=== PATIENT | female | born 1965 | race Caucasian/White ===

== ENCOUNTER → 2021-09-10 01:05 | Outpatient (CLI) | payer OTHER, SELFPAY ==
[2021-09-10 21:03] LABS: SARS-CoV-2 RNA PCR Negative
== END ==
PROVIDERS: PCP Family Medicine; Visit Provider Physician Assistant Medical
DX: R68.89 Other general symptoms and signs (principal); Z20.822 Contact with and (suspected) exposure to COVID-19
CPT/HCPCS: C9803; U0003; U0005

== ENCOUNTER 2021-09-13 11:59 | Outpatient (CLI) | payer OTHER, SELFPAY ==
--- NOTE | ~2021-09-13 | XR_ITS ---
EXAMINATION: XR chest 2V DATE: 09/13/2021 12:17 INDICATION: Cough, unspecified. TECHNIQUE: Frontal and lateral views of the chest were obtained. COMPARISON: None. FINDINGS: There is mild atelectasis in left midlung zone. No pleural effusion or pneumothorax. The he art size is normal. IMPRESSION: 1. Mild atelectasis in left mid lung zone. Reviewed, dictated and finalized at location B. 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
== END 2021-09-13 12:00 | disposition home or self-care (01) ==
PROVIDERS: PCP Family Medicine; Visit Provider Nurse Practitioner Family
DX: R05.9 Cough, unspecified (principal); R91.8 Other nonspecific abnormal finding of lung field
CPT/HCPCS: 71046

== ENCOUNTER 2021-09-18 13:20 | Outpatient (CLI) | payer OTHER, SELFPAY ==
--- NOTE | ~2021-09-18 | XR_ITS ---
EXAMINATION: XR lumbar spine 6V w bending DATE: 09/18/2021 13:57 INDICATION: Spinal stenosis. TECHNIQUE: 7 views of lumbar spine including standing flexion and extension views were obtained. COMPARISON: Lumbar spine radiographs 12/11/2018 FINDINGS: There is 3 mm anterolisthesis of L4 on L5. There is 14 degrees dextroscoliosis of lumbar sp ine. There is no abnormal motion with flexion or extension. Vertebral body heights are normal. There is mildly decreased disc height at L3-L4 and L4-L5. There is multilevel facet joint osteoarthritis, s evere on the right from L3-L4 through L5-S1 and on the left at L4-L5. IMPRESSION: 1. Mild lumbar spondylosis. 2. Lumbar dextroscoliosis. Reviewed, dictated and finalized at location A. OR CREDIT OFFICER
--- NOTE | ~2021-09-18 | XR_ITS ---
EXAMINATION: XR cervical spine min 6V DATE: 09/18/2021 13:57 INDICATION: Spinal stenosis, cervical region. TECHNIQUE: 5 views of cervical spine including flexion and extension views were obtained. COMPARISON: None. FINDINGS: There is 3 degrees levocurvature of cervicothoracic spine. Vertebral body heights are wilmer l. There is hypomotility of the lower cervical spine with flexion and extension. There is moderately decreased disc height at C5-C6 and severely decreased disc height at C6-C7. There is severe bilateral uncovertebral joint osteoarthritis at C5-C6 and C6-C7. The facet joints are unremarkable. There is m ild bilateral neural foraminal stenosis at C5-C6 and C6-C7. There is mild central canal stenosis at C 5-C6 and C6-C7. No prevertebral soft tissue swelling. IMPRESSION: 1. Severe cervical spondylosis. Reviewed, dictated and finalized at location A. EL BUNG REMOVER AND DUMPER
== END 2021-09-18 13:21 | disposition home or self-care (01) ==
LOC: ANHIMG 13:23
PROVIDERS: PCP Family Medicine; Visit Provider Family Medicine
DX: M48.02 Spinal stenosis, cervical region (principal); M47.816 Spondylosis without myelopathy or radiculopathy, lumbar region; M41.86 Other forms of scoliosis, lumbar region; M47.812 Spondylosis without myelopathy or radiculopathy, cervical region
CPT/HCPCS: 72052; 72114

== ENCOUNTER 2021-10-30 00:26 | Day surgery (SDC) | payer OTHER, SELFPAY ==
[2021-10-17 14:10] VITALS: BMI 31.2
[2021-10-30 11:15] VITALS: BP 131/69; PULSE 79; RESP 18; TEMP 36.7; O2SAT 98
[2021-10-30] MEDS: LACTATED RINGERS 1,000 ML 150 ML IV CONT (11:22)
--- NOTE | 2021-10-30 11:30 | PM.HPGS ---
History of Present Illness History of Present Illness Consent: Risks, benefits, and alternatives have been discussed and questions answered. Patient agrees to proceed with procedure. Chief complaint: neoplasm screening Narrative: Dione Love is a 56 year old female referred for colon cancer screening. Review of Systems Review of Systems: All systems reviewed & are unremarkable except as noted in HPI and below PMFSH Past Medical History Medical History Bilateral hand numbness BMI 28.0-28.9,adult BMI 30.0-30.9,adult BMI 31.0-31.9,adult BMI 32.0-32.9,adult Cervical spinal stenosis Cervical spondylosis with radiculopathy Elevated hemoglobin Lumbar spondylosis Family History Family History Father Acute myocardial infarction Diabetes mellitus Mother Diabetes mellitus AAA (abdominal aortic aneurysm) Other Alcohol abuse Cancer Heart disease Hypertension Social History Social History Smoking packs per day: 1 Smoking cigarettes per day: 20.0 Years smoked: 35 Smoking pack-years: 35.00 Tobacco type: cigarettes Second hand tobacco smoke exposure: No Alcohol intake: never Substance use: current Substance use type: marijuana Other substance usage details: smokes weed Living arrangements: with family Additional living arrangements comments: and kids 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 Gender identity (if verbalized by the patient): Female Sexual Orientation (if Verbalized by the Patient): Straight or Heterosexual Spiritual care concerns: No Agree to blood products: Yes Meds Home Medications and Allergies Home Medications Medication Instructions Recorded Confirmed Type albuterol sulfate 90 mcg/actuation 2 inh INHALATION Q6H PRN #8.5 g 09/16/21 10/21/21 Rx aerosol inhaler silver sulfadiazine 1 % topical 1 applic TOPICAL DAILY #20 g 10/15/21 10/21/21 Rx cream mupirocin 2 % topical ointment 1 applic TOPICAL BID #15 g 10/16/21 10/21/21 Rx celecoxib 100 mg capsule 100 mg PO BID #60 cap 10/18/21 10/30/21 Rx pregabalin 150 mg capsule 150 mg PO TID #90 cap 10/21/21 10/30/21 Rx carisoprodol 350 mg tablet 350 mg PO TID PRN #90 tablet 10/24/21 10/30/21 Rx sertraline 100 mg tablet 100 mg PO DAILY #30 tablet 10/24/21 10/30/21 Rx Allergies Allergy/AdvReac Type Severity Reaction Status Date / Time No Known Allergies Allergy Verified 10/30/21 11:14 Vital Signs Vital Signs - 24 hr 10/30/21 11:15 Temperature 36.7 C Pulse Rate 79 Respiratory Rate 18 Blood Pressure 131/69 Pulse Oximetry 98 Exam Const: General: alert Orientation/consciousness: patient oriented x3 Resp: Auscultation: clear to auscultation bilaterally Cardio: Rhythm: regular rhythm GI: GI Palp: Yes Soft to palpation and No Tenderness to palpation present (GI) Neuro: General: patient oriented x3 Assessment and Plan Assessment and plan (1) Screening for colon cancer: Code(s): Z12.11 - Encounter for screening for malignant neoplasm of colon Status: Acute Assessment and Plan: Colonoscopy with possible biopsy or polypectomy or cautery or injection of substances.
--- NOTE | 2021-10-30 12:21 | WPDANESEPPF ---
Anes - Initial Pre Proc Eval Procedure: Operation Date: 10/30/21 12:30 Proposed Procedures p Screening Colonoscopy - Stephen Noel MD Date/Time: 10/30/21 12:21 Surgeon: Stephen Noel MD Pre Op Diagnosis: neoplasm screening Patient Data Age: 56 Gender: F Height: 1.55 m Weight: 78.1 kg Last Vital Signs Temp 98.0 F 10/30/21 11:15 Pulse 79 10/30/21 11:15 Resp 18 10/30/21 11:15 BP 131/69 10/30/21 11:15 Pulse Ox 98 10/30/21 11:15 Allergies Allergy/AdvReac Type Severity Reaction Status Date / Time No Known Allergies Allergy Verified 10/30/21 11:14 Home Medications Medication Instructions Recorded Confirmed Type albuterol sulfate 90 mcg/actuation 2 inh INHALATION Q6H PRN #8.5 g 09/16/21 10/21/21 Rx aerosol inhaler silver sulfadiazine 1 % topical 1 applic TOPICAL DAILY #20 g 10/15/21 10/21/21 Rx cream mupirocin 2 % topical ointment 1 applic TOPICAL BID #15 g 10/16/21 10/21/21 Rx celecoxib 100 mg capsule 100 mg PO BID #60 cap 10/18/21 10/30/21 Rx pregabalin 150 mg capsule 150 mg PO TID #90 cap 10/21/21 10/30/21 Rx carisoprodol 350 mg tablet 350 mg PO TID PRN #90 tablet 10/24/21 10/30/21 Rx sertraline 100 mg tablet 100 mg PO DAILY #30 tablet 10/24/21 10/30/21 Rx Patient hx anesthesia problems: none Family hx anesthesia problems: none Results Review: All pre-operative results and documents have been reviewed as part of the pre-operative evaluation. [facility] Past Medical History Medical History (Updated 10/21/21 @ 11:09 by Kelvin Finch MD) Bilateral hand numbness BMI 28.0-28.9,adult BMI 30.0-30.9,adult BMI 31.0-31.9,adult BMI 32.0-32.9,adult Cervical spinal stenosis Cervical spondylosis with radiculopathy Elevated hemoglobin Lumbar spondylosis Family History Family History Father Acute myocardial infarction Diabetes mellitus Mother Diabetes mellitus AAA (abdominal aortic aneurysm) Other Alcohol abuse Cancer Heart disease Hypertension Social History Social History Smoking packs per day: 1 Smoking cigarettes per day: 20.0 Years smoked: 35 Smoking pack-years: 35.00 Tobacco type: cigarettes Second hand tobacco smoke exposure: No Alcohol intake: never Substance use: current Substance use type: marijuana Other substance usage details: smokes weed Living arrangements: with family Additional living arrangements comments: and kids 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 Gender identity (if verbalized by the patient): Female Sexual Orientation (if Verbalized by the Patient): Straight or Heterosexual Spiritual care concerns: No Agree to blood products: Yes Anes - Eval Final PreProcedure Day of Procedure 10/30/21 12:21 Patient weight: obese Heart: regular rate and rhythm Lungs: clear to auscultation Airway: Mallampati scale class II Neurological: alert and oriented Last oral intake: >/= 8 hours ASA classification: III Emergent: no Anesthetic plan: proceed Anesthesia type and monitoring: general GIVS and standard monitoring Results Review: All pre-operative results and documents have been reviewed as part of the pre-operative evaluation. Informed Consent: The patient's anesthetic plan and its attendant risks and benefits were discussed with the patient/family/POA. Questions were solicited and answers provided to the satisfaction of the patient/family/POA.
[2021-10-30 12:57] VITALS: BP 118/67; PULSE 68; RESP 21; O2SAT 99
[2021-10-30 13:07] VITALS: BP 135/85; PULSE 63; RESP 18; O2SAT 99
[2021-10-30 13:17] VITALS: BP 150/90; PULSE 64; RESP 18; O2SAT 100
== END 2021-10-30 13:34 | disposition home or self-care (01) ==
PROVIDERS: PCP Family Medicine; Visit Provider Internal Medicine Gastroenterology
PROC: 0DJD8ZZ Inspection of Lower Intestinal Tract, Via Natural or Artificial Opening Endoscopic (ICD-10-PCS; CPT 45378; principal; 2021-10-30 12:30)
DX: Z12.11 Encounter for screening for malignant neoplasm of colon (principal); K63.5 Polyp of colon; K57.30 Diverticulosis of large intestine without perforation or abscess without bleeding; F17.210 Nicotine dependence, cigarettes, uncomplicated; F12.90 Cannabis use, unspecified, uncomplicated; Z79.51 Long term (current) use of inhaled steroids; E66.9 Obesity, unspecified; Z68.32 Body mass index [BMI] 32.0-32.9, adult
CPT/HCPCS: 45380; 88305; J2001; J2704; J7120

== ENCOUNTER 2021-11-07 10:27 | Outpatient (CLI) | payer OTHER, SELFPAY ==
--- NOTE | 2021-11-07 11:30 | NEURO_ITS ---
Impression:: # Complains of numbness of upper extremities. # Subtle evolving right Carpal Tunnel Syndrome. # No ulnar neuropathy. # Normal needle/EMG exam. Nerve Conduction Studies Anti Sensory Summary Table Stim Site NR Peak (ms) P-T Amp (?V) Site1 Site2 Delta-P (ms) Dist (cm) Archie (m/s) Left Median Anti Sensory (2-3nd Digit) Wrist 3.6 19.1 Wrist 2-3nd Digit 3.6 14.0 39 Wrist 4.0 19.7 Wrist 2-3nd Digit 3.6 14.0 39 Right Median Anti Sensory (2-3nd Digit) Wrist 3.4 62.1 Wrist 2-3nd Digit 3.4 14.0 41 Wrist 3.7 39.6 Wrist 2-3nd Digit 3.4 14.0 41 Left Radial Anti Sensory (Base 1st Digit) Wrist 2.1 31.1 Wrist Base 1st Digit 2.1 0.0 Right Radial Anti Sensory (Base 1st Digit) Wrist 1.9 23.3 Wrist Base 1st Digit 1.9 0.0 Left Ulnar Anti Sensory (5th Digit) Wrist 2.3 38.0 Wrist 5th Digit 2.3 14.0 61 Right Ulnar Anti Sensory (5th Digit) Wrist 2.3 21.5 Wrist 5th Digit 2.3 14.0 61 Motor Summary Table Stim Site NR Onset (ms) O-P Amp (mV) Site1 Site2 Delta-0 (ms) Dist (cm) Archie (m/s) Left Median Motor (Abd Poll Brev) Wrist 3.1 3.3 Elbow Wrist 4.6 25.0 54 Elbow 7.7 1.2 Right Median Motor (Abd Poll Brev) Wrist 3.6 3.6 Elbow Wrist 4.3 24.0 56 Elbow 7.9 3.7 Left Ulnar Motor (Abd Dig Minimi) Wrist 2.2 9.0 A Elbow Wrist 4.5 27.0 60 A Elbow 6.7 7.7 Right Ulnar Motor (Abd Dig Minimi) Wrist 2.3 9.1 A Elbow Wrist 4.4 27.0 61 A Elbow 6.7 8.0 F Wave Studies NR F-Lat (ms) L-R F-Lat (ms) Left Median (Mrkrs) (Abd Poll Brev) 27.19 0.97 Right Median (Mrkrs) (Abd Poll Brev) 26.21 0.97 Left Ulnar (Mrkrs) (Abd Dig Min) 25.78 0.24 Right Ulnar (Mrkrs) (Abd Dig Min) 25.55 0.24 EMG Side Muscle Nerve Root Ins Act Fibs Amp Dur Recrt Comment Right 1stDorInt Ulnar C8-T1 Nml Nml Nml Nml Nml Right Ext Indicis Radial (Post Int) C7-8 Nml Nml Nml Nml Nml Right Ext Digitorum Radial (Post Int) C7-8 Nml Nml Nml Nml Nml Right BrachioRad Radial C5-6 Nml Nml Nml Nml Nml Right PronatorTeres Median C6-7 Nml Nml Nml Nml Nml Right Abd Poll Brev Median C8-T1 Nml Nml Nml Nml Nml Left 1stDorInt Ulnar C8-T1 Nml Nml Nml Nml Nml Left Ext Indicis Radial (Post Int) C7-8 Nml Nml Nml Nml Nml Left Ext Digitorum Radial (Post Int) C7-8 Nml Nml Nml Nml Nml Left BrachioRad Radial C5-6 Nml Nml Nml Nml Nml Left PronatorTeres Median C6-7 Nml Nml Nml Nml Nml Left Abd Poll Brev Median C8-T1 Nml Nml Nml Nml Nml MTDD
== END 2021-11-07 10:28 | disposition home or self-care (01) ==
LOC: ANHNEURO 10:31
PROVIDERS: PCP Family Medicine; Visit Provider Family Medicine
DX: R20.2 Paresthesia of skin (principal); G56.01 Carpal tunnel syndrome, right upper limb
CPT/HCPCS: 95886; 95911

== ENCOUNTER 2021-12-03 08:30 | Outpatient (RCR) | payer OTHER, SELFPAY ==
--- NOTE | 2021-10-31 09:01 | PTOPEVAL ---
PHYSICAL THERAPY EVALUATION and PLAN OF CARE Thank you for referring Dione Love to [facility].? The patient is scheduled to be seen for therapy? 2x/week for 4 weeks. Please review, sign, date and return this plan of care OLEKSANDR. I agree with and certify that the following plan of care is medically necessary. Referring Physician Date Attending Provider: Kelvin Finch MD Evaluation Outpatient Past Medical History Neurological History Hx Migraine Yes Cardiovascular History Hx Hypercholesterolemia Yes Respiratory History Hx Bronchitis Yes Hx COVID-19 Yes: 08/2019 Hx Other Respiratory Disorders Yes: SOB with exertion Gastrointestinal History Hx Gastrointestinal Disorders No Significant History Genitourinary History Hx Genitourinary Disorders No Significant History Musculoskeletal History Hx Arthritis Yes Hx Degenerative Disk Disease Yes Hx Fibromyalgia Yes Hx Orthopedic Surgery Yes: L shoulder tendon repair; bilat foot/ankle surgeries Hematological History Hx Hematological Disorders No Significant History Endocrine History Hx Endocrine Disorders No Significant History HEENT History Hx Sinus Problems Yes Integumentary History Hx Skin Disorders No Significant History Reproductive History Hx Tubal Ligation Yes Psychosocial History Hx Anxiety Yes Hx Bipolar Disorder Yes Hx Depression Yes Pain History History of Any Previous or Ongoing No Significant History Instance of Pain Anesthesia History Hx Anesthesia Reactions No Significant History Other History Hx Implanted Device Yes: R foot pin Diagnosis stenosis, back pain, neck pain Onset chronic Subjective Information Has been experiencing back and Query Text:As Reported By Patient/ neck pain chronically. She Family has previous imaging that indicates OA, stenosis, spondylosis, and also reports sciatic symptoms on the left LE. States that there is numbness in the left lateral thigh - taking Lyrica and states that it takes the pain away but not the numbness. cervical spine: will be typing and her hands will go tingly. Gets numbess in bilateral hands. Gets swollen fingers. States that she does not normally have pain in the neck
--- NOTE | 2021-11-15 10:03 | PCPTNOTE ---
Patient did not show up for scheduled appointment this date. Called patient and she stated she looked at her schedule wrong.
--- NOTE | 2021-12-03 09:16 | PTOPEVAL ---
PHYSICAL THERAPY DISCHARGE NOTE Thank you for referring Dione Love to [facility].? Please review, sign, date and return this plan of care OLEKSANDR. I agree with and certify that the following plan of care is medically necessary. Referring Physician Date Attending Provider: Kelvin Finch MD Discharge Diagnosis stenosis, back pain, neck pain Onset chronic Subjective Information States that she feels like Query Text:As Reported By Patient/ physical therapy has probably Family helped. Overall her hands are doing well. The left thumb is still very sore and swollen. Also notes that she is experiencing right UE pain over the last day or two - thinks it could be fibromyalgia. States she walked 5 miles yesterday and was sore after but she knew why she was sore. Pain Score Pain Score 0: Self Report Additional Pain Score Comments . Cervical and Lumbar ROM Cervical ROM Cervical ROM Comments generally WFL cervical ROM, no change in symptoms with ROM; spinal segmental motion limited at lower cervical region Lumbar ROM Reason Not Measured WFL/Left,WFL/Right Lumbar Comments no change in symptoms with ROM Lower Extremity Muscle Strength Testing Hip Strength Right Hip Flexion Strength 5 Normal Hip Extension Strength 4 Good Hip Abduction Strength 4 Good Left Hip Flexion Strength 5 Normal Hip Extension Strength 4 Good Hip Abduction Strength 4 Good Knee Strength Bilateral Knee Flexion Strength 5 Normal Knee Extension Strength 5 Normal Upper Extremity Muscle Strength Testing Scapular/Shoulder Bilateral Shoulder Flexion Strength 5 Normal Shoulder Abduction Strength 5 Normal Shoulder Medial Rotation Strength 5 Normal Shoulder Lateral Rotation Strength 5 Normal Elbow/Forearm Bilateral Elbow Flexion Strength 5 Normal Elbow Extension Strength 5 Normal Elbow/Forearm Strength Comments 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 She has been doing very well and has met her functional and
== END 2021-12-04 11:03 | disposition home or self-care (01) ==
LOC: ANHPT 08:30
PROVIDERS: PCP Family Medicine; Visit Provider Family Medicine
DX: M54.41 Lumbago with sciatica, right side (principal); M48.02 Spinal stenosis, cervical region; R20.0 Anesthesia of skin; G89.29 Other chronic pain
CPT/HCPCS: 97110; 97112; 97162; 97530

== ENCOUNTER 2023-03-26 15:21 | Outpatient (CLI) | payer OTHER, SELFPAY ==
--- NOTE | ~2023-03-26 | XR_ITS ---
XR hand RT 2V 03/26/2023 15:37 Indication: Right hand pain Procedure: 2 views right hand Comparison: No prior studies for comparison. Findings: Mild polyarticular osteoarthritis. Normal mineralization. No fracture, subluxation or dislo cation. No focal soft tissue abnormality. No foreign bodies. Impression: 1: Mild polyarticular osteoarthritis. Reviewed, dictated and finalized at location A. Impression: 1: Mild polyarticular osteoarthritis.
== END 2023-03-26 15:22 | disposition home or self-care (01) ==
PROVIDERS: PCP Family Medicine; Visit Provider Physician Assistant Medical
DX: M79.641 Pain in right hand (principal); M15.9 Polyosteoarthritis, unspecified
CPT/HCPCS: 73120

== ENCOUNTER 2023-04-28 12:30 | Outpatient (RCR) | payer OTHER, SELFPAY ==
--- NOTE | 2023-04-15 14:50 | OTOPEVAL1 ---
Assessment and note entered by Kenny Saucedo, SERGE/Judd, CHT Evaluation Information Assessment Status Evaluation Diagnosis Pain in right hand Subjective Information Patient reports experiencing pain in her right hand for several months . She reports the pain is burning and that the hand is swollen, hot, and feverish . She points to the base of digit III and in the MCP joint. She has concerns about the 3rd finger drifting over toward the ring finger all the time. She has difficulties recreating the pain, but it comes and goes. She has had tests for RA which were negative. She is to have an EMG. Reported Pain Level Pain Score 0: Self Report Additional Pain Score Comments No pain at rest. Reports pain can get up to 10/10 at times. Feels stabbing . Assessment OT Clinical Summary Patient referred to outpatient OT with pain in her right, dominant hand. She was unable to recreate what causes pain today. She demonstrates intact ROM of the right hand. She does have difficulties with lumbrical activation of the middle finger, noting that she cannot get the PIP joint to straighten fully despite having full extension otherwise. Gross complaint evaluation officer strength is also weak. Skilled OT indicated to maximize functional use of her right hand through use of thermal modalities, HEP instruction, and functional therapeutic exercises. Plan of Care Interventions Therapeutic Exercise,Manual Therapy,Therapeutic Activities,Hot Pack/Cold Pack,Ultrasound,Paraffin OT Services Indicated Yes Treatment Frequency and 1x/week for 3 weeks Duration These treatments will address the objective and functional deficits as defined above. The patient will be advanced safely and appropriately in order for the patient to progress towards his/her prior level of function. Additional exercises will be introduced and as well as a comprehensive home exercise program upon discharge, if needed, ?to ensure carryover of functional gains achieved in the clinic. This treatment plan has been reviewed and agreement upon by the patient.
--- NOTE | 2023-04-15 14:53 | OPREHPOC ---
Outpatient Therapy Plan of Care This is a Multidisciplinary Plan of Care that may contain components documented by all disciplines (PT, OT, and ST.) OT Problem 1 OT Problem #1 Knowledge Deficit OT Goal 1 Goal 1. Patient to be independent with instructed materials. Target Visit 3 OT Problem 2 OT Problem #2 Pain OT Goal 1 Goal 1. Patient to report reduced pain in the right hand to 1/10 or less at worst . Target Visit 3 OT Problem 3 OT Problem #3 Impaired Strength OT Goal 1 Goal 1. Patient to increase right want ad receiver strength to 60 lbs. Target Visit 3
--- NOTE | 2023-06-26 12:56 | OTOPDC ---
Assessment and note entered by Kenny Saucedo, SERGE/Judd, CHT Discharge Notification 06/26/23 OT Clinical Summary Patient was initially evaluated by OT on 04/15/23 and attended 2 follow up sessions. She was independent with her HEP and making progress. She did not wish to schedule more visits after our few sessions together. Discharging from OT.
== END 2023-06-26 13:54 | disposition home or self-care (01) ==
LOC: ANHOT 12:30
PROVIDERS: PCP Family Medicine; Visit Provider Plastic Surgery
DX: M79.641 Pain in right hand (principal)
CPT/HCPCS: 97018; 97110; 97140; 97165

== ENCOUNTER 2023-05-26 10:30 | Outpatient (CLI) | payer OTHER, SELFPAY ==
--- NOTE | 2023-05-26 11:30 | NEURO_ITS ---
Impression: # Complains of right upper extremity and neck pain # Normal Nerve Conduction Study. # No Carpal Tunnel Syndrome or ulnar neuropathy. # Normal needle/EMG. Nerve Conduction Studies Anti Sensory Summary Table Stim Site NR Peak (ms) P-T Amp (?V) Site1 Site2 Delta-P (ms) Dist (cm) Archie (m/s) Right Median Anti Sensory (2-3nd Digit) Wrist 3.3 57.5 Wrist 2-3nd Digit 3.3 14.0 42 Wrist 3.3 65.6 Wrist 2-3nd Digit 3.3 14.0 42 Right Radial Anti Sensory (Base 1st Digit) Wrist 2.0 20.5 Wrist Base 1st Digit 2.0 0.0 Right Ulnar Anti Sensory (5th Digit) Wrist 2.3 41.7 Wrist 5th Digit 2.3 14.0 61 Motor Summary Table Stim Site NR Onset (ms) O-P Amp (mV) Site1 Site2 Delta-0 (ms) Dist (cm) Archie (m/s) Right Median Motor (Abd Poll Brev) Wrist 3.3 9.8 Elbow Wrist 4.4 24.0 55 Elbow 7.7 5.1 Right Ulnar Motor (Abd Dig Minimi) Wrist 2.3 9.2 A Elbow Wrist 4.7 25.0 53 A Elbow 7.0 9.7 F Wave Studies NR F-Lat (ms) L-R F-Lat (ms) Right Median (Mrkrs) (Abd Poll Brev) 26.36 Right Ulnar (Mrkrs) (Abd Dig Min) 25.37 EMG Side Muscle Nerve Root Ins Act Fibs Amp Dur Recrt Comment Right 1stDorInt Ulnar C8-T1 Nml Nml Nml Nml Nml Right Ext Indicis Radial (Post Int) C7-8 Nml Nml Nml Nml Nml Right Ext Digitorum Radial (Post Int) C7-8 Nml Nml Nml Nml Nml Right BrachioRad Radial C5-6 Nml Nml Nml Nml Nml Right PronatorTeres Median C6-7 Nml Nml Nml Nml Nml Right Abd Poll Brev Median C8-T1 Nml Nml Nml Nml Nml Right ABD Dig Min Ulnar C8-T1 Nml Nml Nml Nml Nml Right Biceps Musculocut C5-6 Nml Nml Nml Nml Nml Right Triceps Radial C6-7-8 Nml Nml Nml Nml Nml Right Deltoid Axillary C5-6 Nml Nml Nml Nml Nml MTDD
== END 2023-05-26 10:31 | disposition home or self-care (01) ==
LOC: ANHNEURO 10:32
PROVIDERS: PCP Family Medicine; Visit Provider Plastic Surgery
DX: R20.2 Paresthesia of skin (principal)
CPT/HCPCS: 95886; 95909

== ENCOUNTER 2023-08-08 19:40 | Emergency (ER) | payer BC, OTHER, SELFPAY ==
--- NOTE | ~2023-08-08 | XR_ITS ---
EXAM: XR knee LT 3V DATE: 08/08/2023 20:06 HISTORY: KNEE PAIN . COMPARISON: None available. FINDINGS: Normal mineralization. No fracture or dislocation. No lytic or blastic lesion. Joint space s are maintained. No erosion or periosteal change. Soft tissues within normal limits. IMPRESSION: No acute osseous finding in the left knee. Reviewed, dictated and finalized at location K. THESIOLOGIST/PHYSICIAN
[2023-08-08 19:37] VITALS: BP 146/71; PULSE 69; RESP 19; TEMP 36.7; O2SAT 100
--- NOTE | 2023-08-08 20:33 | ED.LOWEXIN ---
HPI - Extremity Injury (Lower) General Chief Complaint: Extremity Injury, Lower Stated Complaint: knee injury Time Seen by Provider: 08/08/23 20:01 Source: patient Mode of arrival: EMS Limitations: no limitations History of Present Illness HPI Narrative: Patient is a 57 y/o female who presents to the ED via EMS with report Of left knee pain. Patient reports she was putting up [place] decorations on her her tree today and was 2 steps up on a ladder. When she went to step down, she fell and twisted her left knee. She states she felt a pop. She was unable to bear weight on her left leg afterwards due to severe pain. She states her knee feels very unstable. She has not taken anything for pain. Denies any numbness or tingling. Denies head injury or LOC. Denies ankle pain or hip pain. Related Data Home Medications Medication Instructions Recorded Confirmed multivitamin 1 tablet PO .QD 09/03/22 06/10/23 Allergies Allergy/AdvReac Type Severity Reaction Status Date / Time No Known Allergies Allergy Verified 08/08/23 19:44 Review of Systems Review of Systems: CONSTITUTIONAL: Denies fever, chills, or sweats. MUSCULOSKELETAL: See HPI. NEUROLOGIC: Denies tingling, numbness, or weakness. All systems reviewed & are unremarkable except as noted in HPI and below PMFSH Past Medical History Medical History Bilateral hand numbness BMI 28.0-28.9,adult BMI 30.0-30.9,adult BMI 31.0-31.9,adult BMI 32.0-32.9,adult BMI greater than 30 Cervical spinal stenosis Cervical spondylosis with radiculopathy Elevated hemoglobin Lumbar spondylosis Family History Family History Father Acute myocardial infarction Diabetes mellitus Mother Diabetes mellitus AAA (abdominal aortic aneurysm) Other Alcohol abuse Cancer Heart disease Hypertension Social History Social History Smoking packs per day: 1 Smoking cigarettes per day: 20.0 Years smoked: 30 Smoking pack-years: 30.00 Smoking status: Current every day smoker Tobacco type: cigarettes Second hand tobacco smoke exposure: No Alcohol intake: never Substance use: current Substance use type: marijuana Other substance usage details: daily Lack of Transportation: No Lack of Food: Never True Current Housing: I Have Housing Concerned About Future Housing: No Difficulty Paying Gas/Electric Bills: No Difficulty Paying for Meds: No Currently Unemployed: YES Education: Associate Degree Difficulty w/ Childcare or Family Care: No Living arrangements: with family Additional living arrangements comments: and kids Occupation/Education: occupation 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 HEAD: Normocephalic, atraumatic. NECK: Supple. No adenopathy, no masses. RESPIRATORY: Airway patent, respirations nonlabored. CARDIOVASCULAR: Regular rate and rhythm without murmurs, rubs, or gallops. pedal pulses 2+ and equal bilaterally. MUSCULOSKELETAL: Moves all extremities. No gross deformities. mild limited flexion range of motion of left knee to approximately 45? due to pain. Tenderness to palpation throughout medial joint spaces. Mild swelling noted throughout anterior knee. No tenderness throughout lower leg, ankle. SKIN: Warm, dry, normal color. No rashes. NEURO: A&O X3. Speech clear. Cranial nerves II-XII grossly intact. No ataxic movements. PSYCHIATRIC: Appropriate mood and affect. Normal interaction. Course Vital Sig
[2023-08-08] MEDS: HYDROcodone/acetaminophen (*CRX) 5-325 MG TABLET 1 TAB PO (20:37)
== END 2023-08-08 22:12 | disposition home or self-care (01) ==
PROVIDERS: Emergency Provider Physician Assistant; PCP Family Medicine
DX: M23.92 Unspecified internal derangement of left knee (principal); F17.210 Nicotine dependence, cigarettes, uncomplicated; W11.XXXA Fall on and from ladder, initial encounter
CPT/HCPCS: 73562; 99283; A9270

== ENCOUNTER 2023-09-08 15:35 | Outpatient (CLI) | payer BC, OTHER, SELFPAY ==
--- NOTE | ~2023-09-08 | MR_ITS ---
MRI of the left knee Clinical history: ACL rupture Technique: Coronal proton density and proton density-weighted images, sagittal proton-density and T2 fat-sat images, and axial proton-density fat-saturated images were acquired. Findings: There is no complete rupture of the proximal to mid ACL. Posterior cruciate ligament is int act. There is complete tear of the proximal MCL. Lateral collateral ligament complex is intact. Popli teus tendon is intact. Medial and lateral menisci are intact, without evidence of tear. There is a fracture of the posterolateral tibial plateau, minimally depressed, with the fracture frag ment measuring approximately 1.2 x 1.8 x 0.7 cm (sagittal image 18, axial image 21, coronal image 18) . There is also a probable small nondisplaced, nondepressed fracture of the posterior medial tibial p lateau (sagittal image 9). There is extensive marrow edema throughout the proximal tibia. There is ad ditional marrow edema at the lateral femoral condyle. There is probable focal chondral injury or maxwell dromalacia at the inner aspect of the lateral femoral condyle. There is high-grade chondromalacia at the patellar apex and lateral facet, with a grade 4 fissure as well the patellar apex. There is proba ble subchondral reactive marrow edema versus contusion of the patella. Extensor mechanism is intact. Moderate joint effusion present. [id number] Nicholas's cyst present . There is extensive subcutaneous soft tissue edema anteriorly at the knee. Impression: Complete ACL rupture at its proximal to midportion. Complete tear of the proximal MCL. 1.8 x 1.2 x 0.7 cm minimally depressed posterolateral tibial plateau fracture fragment, as detailed a marin. Additional small nondisplaced fracture at the posterior medial tibial plateau. Extensive marrow edema throughout the proximal tibia and at the lateral femoral condyle, compatible w ith bone contusions. Focal areas of high-grade chondromalacia patella with probable subchondral reactive marrow edema of t he patella, versus patellar bone contusion. Moderate joint effusion with small to moderate Nicholas's cyst. Reviewed, dictated and finalized at [facility] M. REEL OPERATOR Impression: Complete ACL rupture at its proximal to midportion. Complete tear of the proximal MCL. 1.8 x 1.2 x 0.7 cm minimally depressed posterolateral tibial plateau fracture f ragment, as detailed above. Additional small nondisplaced fracture at the posterior medial tibial plateau. Extensive marrow edema throughout the proximal tibia and at the lateral femoral condyle, compatible with bone contusions. Focal areas of high-grade chondromalacia patella with probable subchondral reac tive marrow edema of the patella, versus patellar bone contusion. Moderate joint effusion with small to moderate Nicholas's cyst.
== END 2023-09-08 15:36 | disposition home or self-care (01) ==
PROVIDERS: PCP Family Medicine; Visit Provider Orthopaedic Surgery
DX: S83.512A Sprain of anterior cruciate ligament of left knee, initial encounter (principal); S83.412A Sprain of medial collateral ligament of left knee, initial encounter; S82.145A Nondisplaced bicondylar fracture of left tibia, initial encounter for closed fracture; M22.42 Chondromalacia patellae, left knee; M25.462 Effusion, left knee; M71.22 Synovial cyst of popliteal space [Baker], left knee; T14.90XA Injury, unspecified, initial encounter
CPT/HCPCS: 73721

== ENCOUNTER 2024-05-25 09:08 | Outpatient (CLI) | payer BC, SELFPAY ==
--- NOTE | ~2024-05-25 | XR_ITS ---
3 VIEWS LUMBAR SPINE Ordering provider: Afua Urena NP History: . M47.816 - Spondylosis without myelopathy or radiculopathy... . Comparison: None. FINDINGS: VERTEBRAL BODIES:S-shaped scoliosis. Minimal anterolisthesis at the level of L4-L5. No visible fractu re or subluxation. DISK SPACES: Narrowing of the disc L1-L2, L3-L4, and L4-L5. Facet joint disease at the level of L4-5 and L5-S1. SOFT TISSUES: Aortic calcification. IMPRESSION: No acute osseous abnormality lumbar spine. Multilevel degenerative disc disease. Reviewed, dictated and finalized at location A.
[2024-05-25 09:38] LABS: Hematocrit 45.3 % (37.0-47.0); Hemoglobin 15.7 g/dL (12.0-15.0); Mean Corpuscular HGB Conc 34.7 g/dl (32-36); Mean Corpuscular Hemoglobin 31.8 pg (26-34); Mean Corpuscular Volume 91.9 fl (80-100); Mean Platelet Volume 9.6 fl (7.4-10.4); Platelet Count Result 173 k/mm3 (150-375); Red Blood Count 4.93 M/mm3 (4.2-5.4); Red Cell Distribution Width 12.5 % (11.5-14.5); White Blood Count 5.4 K/mm3 (4.5-10.0)
[2024-05-25 09:54] LABS: Alanine Aminotransferase 21 U/L (6-35); Albumin Level 4.5 g/dL (3.5-5.1); Alkaline Phosphatase 106 U/L (38-126); Anion Gap 4 mmol/L (4-12); Aspartate Amino Transferase 25 U/L (14-36); Bilirubin,Total 0.5 mg/dL (0.2-1.3); Blood Urea Nitrogen 11 mg/dL (7-17); Calcium 9.6 mg/dL (8.4-10.2); Carbon Dioxide 28 mmol/L (22-30); Chloride 108 mmol/L (98-107); Cholesterol 175 mg/dL (0-200); Estimated Glomerular Filt Rate > 60; Glucose 98 mg/dL (65-110); HDL Direct 43 mg/dL; Potassium 4.1 mmol/L (3.4-5.0); Sodium 140 mmol/L (137-145); Triglycerides 194 mg/dL (<150)
[2024-05-25 10:05] LABS: LDL Cholesterol Direct 106 mg/dL
[2024-05-25 10:24] LABS: Thyroid Stimulating Hormone 0.366 uIU/mL (0.465-4.680)
[2024-05-25 10:42] LABS: Vitamin D 25 Hydroxy 37.3 ng/mL
== END 2024-05-25 09:09 | disposition home or self-care (01) ==
PROVIDERS: PCP Family Medicine; Visit Provider Nurse Practitioner Family
DX: M51.36 Other intervertebral disc degeneration, lumbar region (principal); E78.5 Hyperlipidemia, unspecified; F41.9 Anxiety disorder, unspecified; E55.9 Vitamin D deficiency, unspecified; M48.02 Spinal stenosis, cervical region
CPT/HCPCS: 36415; 72114; 80053; 80061; 82306; 84443; 85027

== ENCOUNTER 2024-06-22 10:42 | Outpatient (CLI) | payer BC, SELFPAY ==
[2024-06-22 11:42] LABS: Anion Gap 6 mmol/L (4-12); Blood Urea Nitrogen 11 mg/dL (7-17); Calcium 9.6 mg/dL (8.4-10.2); Carbon Dioxide 28 mmol/L (22-30); Chloride 106 mmol/L (98-107); Cholesterol 208 mg/dL (0-200); Estimated Glomerular Filt Rate > 60; Glucose 85 mg/dL (65-110); HDL Direct 38 mg/dL; Potassium 4.1 mmol/L (3.4-5.0); Sodium 140 mmol/L (137-145); Triglycerides 212 mg/dL (<150)
[2024-06-22 11:53] LABS: LDL Cholesterol Direct 122 mg/dL
[2024-06-22 13:06] LABS: Free T4 Free Thyroxine 0.93 ng/mL (0.78-2.19)
== END 2024-06-22 10:43 | disposition home or self-care (01) ==
LOC: ANHLAB 10:44
PROVIDERS: PCP Family Medicine; Visit Provider Nurse Practitioner Family
DX: R79.89 Other specified abnormal findings of blood chemistry (principal); E78.5 Hyperlipidemia, unspecified
CPT/HCPCS: 36415; 80048; 80061; 84439; 84443

== ENCOUNTER 2024-10-07 12:32 | Outpatient (CLI) | payer OTHER, SELFPAY ==
--- OUTSIDE RECORDS SUMMARY | 2024-10-07 12:36 | XMS_ITS | Referral Summary ---
Author Organization [facility] Address [address] [place] [address] Care Team Providers Care Boiler Operator Helper Name Role Phone Kelvin Finch MD Primary Care Provider [phone] Source Comments [facility],non-owned Affiliates and Associated Physician Practices is amultiple site organization consisting of ambulatory clinics and hospital sitesin [place], [place], [place] and [place]. This disclosure is being madepursuant to the Care Everywhere program and may not contain all information available regarding this patient. Last updated 18.[facility] Encounters Date Type Department Care Team Description 08/03/2024 1:00 PM MANAGER HOUSE Office Visit [facility] - Endocrinology [address] [place] [address] Gina Cyr MD Other specified abnormal findings of blood chemistry (Primary Dx) 08/02/2024 Travel 08/01/2024 Transcribe Orders [facility] - Centralized Scheduling [address] [place] [address] Mayda Thorpe, COURT SECURITY OFFICER-SURVEYING CREW RODMAN Other specified abnormal findings of blood chemistry from Last 3 Months Allergies No known active allergies Medications * Be aware that medications may not be up to date on this document. Alwaysverify current medications with the patient. Medication Sig Dispensed Refills Start Date End Date Status tiZANidine (ZANAFLEX) 4 MG tablet 10/13/2018 Active atorvastatin (LIPITOR) 20 MG tablet 10/05/2018 Active temazepam (RESTORIL) 30 MG capsule 10/05/2018 Active betamethasone valerate (VALISONE) 0.1 % cream 09/24/2018 Active sertraline (ZOLOFT) 100 MG tablet 09/20/2018 Active betamethasone dipropionate augmented (DIPROLENE AF) 0.05 % creamIndications:Hand eczema Apply to affected area on hands twice daily. 30 days supply. 50 g 11 10/21/2018 Active Additional Information Patient not taking.Reported on 08/03/2024 carisoprodol (Soma) 350 MG tablet TAKE 1 TABLET BY MOUTH THREE TIMES DAILY NEEDED FOR MUSCLE PAIN. TAKE AT BEDTIME NEEDED FOR PAIN AND REST Active HYDROcodone-acetamino phen (Poway) 5-325 MG tablet Take 1 (one) tablet by mouth every 6 hours as needed Active pregabalin (Lyrica) 150 MG capsule TAKE ONE CAPSULE BY MOUTH EVERY DAY AT BEDTIME WITH 300 MG DOSE Active triamcinolone acetonide (Kenalog-10) injection in office 11/11/2023 Active BUPivacaine PF (Marcaine PF) 0.5 % injection in office 11/11/2023 Active pravastatin (Pravachol) 40 MG tablet Take 1 (one) tablet by mouth at bedtime Active celecoxib (CeleBREX) 200 MG capsule TAKE 1 CAPSULE BY MOUTH TWICE DAILY NEEDED FOR PAIN DIRECTED Active multivitamin daily tablet Take 1 (one) tablet by mouth daily with food Active ascorbic acid (Vitamin C) 250 MG tablet Take 1 (one) tablet by mouth once daily Active Active Problems Problem Noted Date Diagnosed Date Other specified abnormal findings of blood chemi stry 08/04/2024 Social History Tobacco Use Types Packs/Day Years Used Date Smoking Tobacco: Every Day Smokeless Tobacco: Never Tobacco Cessation:Ready to Q uit: Not Asked; Counseling Given: Not Answered Sex and Gender Information Value Date Recorded Sex Assigned at Not on file Gender Identity Not on file Sexual Orientation Not on file Last Filed Vital Signs Vital Sign Reading Time Taken Comments Blood Pressure 128/78 08/03/2024 1:12 PM MANAGER HOUSE Pulse 63 08/03/2024 1:12 PM MANAGER HOUSE Temperature - - Respiratory Rate - - Oxygen Saturation 94% 08/03/2024 1:12 PM MANAGER HOUSE Inhaled Oxygen Concentration - - Weight 75.8 kg (167 lb) 08/03/2024 1:12 PM MANAGER HOUSE Height 157.5 cm (5' 2 ) 08/03/2024 1:12 PM MANAGER HOUSE Body Mass Index 30.54 08/03/2024 1:12 PM MANAGER HOUSE Plan of Treatment Not on file Care Teams Boiler Operator Helper Relationship Specialty Start Date End Date Kelvin Finch MD [address] [place] [address] PCP - General 11/01/21
--- OUTSIDE RECORDS SUMMARY | 2024-10-07 12:36 | XMS_ITS | Clinical Summary ---
Author Organization [facility] Address [address] [place] [address] Care Team Providers Care Phosphoric Acid Supervisor Name Role Phone None, Provider MD Primary Care Provider Unavaila ble Allergies No known active allergies Medications atorvastatin 20 MG tablet Take 1 tablet by mouth. 8 Active sertraline 100 MG tablet Take 1 tablet by mouth 2 (two) times daily. 4 Active temazepam 30 MG capsule Take 1 capsule by mouth. 8 Active betamethasone valerate cream 0.1 % creamIndication s:Psoriasis and similar disorder Apply topically 2 (two) times daily. 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[facility]) 06/27/2014 Moderate recurrent major depression ([facility]) 02/01/2014 Bipolar affective disorder ([facility]) 07/2013 Fatigue, unspecified type 02/08/2013 Generalized anxiety disorder 02/08/2013 Menopause present 02/08/2013 Resolved Problems Problem Noted Date Diagnosed Date Resolved Date Breast cancer screening 09/21/201405/01 Immunizations Name Administration Dates Next Due Influenza (Generic) 06/27/2014 Influenza Adult (Generic) 06/28/2018 Family History Medical History Relation Comments MD Father Breast Cancer Maternal Grandmother Diabetes Mother Depression Sister Relation Status Comments Father Maternal Grandmother Mother Sister Social History Tobacco Use Types Packs/Day Years Used Date Smoking Tobacco: Every Day Cigarettes 1 35 Smokeless Tobacco: Never Alcohol Use Standard Drinks/Week Comments No 0 (1 standard drink = 0.6 oz pur e alcohol) AUDIT-C Answer Date Recorded Frequency of Alcohol Consumption Never 09/24/2018 Average Number of Drinks Not on file 019 Frequency of Binge Drinking Not on file 09/01 Education Answer Date Recorded What is the highest level of school you have completed or the highest degree you have received? Associate degree: occupational, technical, or vocational program 09/24/2018 Comments Unknown Sex and Gender Information Value Date Recorded Sex Assigned at Not on file Legal Sex Female 7:14 PM CDT Gender Identity Not on file Sexual Orientation Not on file Last Filed Vital Signs Vital Sign Reading Time Taken Comments Blood Pressure 124/68 09/24/2018 10:03 AM FRONT OFFICE JAVA DEVELOPER Pulse 84 09/24/2018 10:03 AM FRONT OFFICE JAVA DEVELOPER Temperature 36.9 C (98.4 F) 09/24/2018 10:03 AM FRONT OFFICE JAVA DEVELOPER Respiratory Rate - - Oxygen Saturation 98% 09/24/2018 10:03 AM FRONT OFFICE JAVA DEVELOPER Inhaled Oxygen Concentration - - Weight 76.7 kg (169 lb) 09/24/2018 10:03 AM FRONT OFFICE JAVA DEVELOPER Height 157.5 cm (5' 2 ) 09/24/2018 10:03 AM FRONT OFFICE JAVA DEVELOPER Body Mass Index 30.91 09/24/2018 10:03 AM FRONT OFFICE JAVA DEVELOPER Plan of Treatment Health Maintenance Due Date Last Done Comments Cervical Cancer Screening Pa p Smear (Age 30 to 64) Every 3 Years 1966 Colorectal Cancer Screening Colonoscopy (10 Years) 1966 Annual Physical 1969 Pneumococcal Vaccine: Pediatrics (0 to 5 Years) and At-Risk Patients (6 to 64 Years) (1 of 2 - PCV) 1972 Hepatitis C 1984 DTaP, Tdap and Td Vaccines ( 1 - Tdap) 1985 Hepatitis B Vaccines (1 of 3 - 19+ 3-dose series) 1985 Cervical Cancer Screening Pa p with HPV Testing (Age 30 to 64) Every 5 Years 1996 Cervical Cancer Screening wi th HPV 1996 Mammogram Screening 2006 Zoster Vaccines (1 of 2) 2016 COVID-19 Vaccine (2023-2 5 season) 2024 Influenza Adult (#1) 2024 06/28/2018, 06/27/2014 Meningococcal B Vaccine Aged Out No l onger eligible based on patient's age to complete this topic Meningococcal Vaccine Aged Out No noman francisco eligible based on patient's age to complete this topic RSV Immunizations Under 20 Months Aged Out No longer eligible b ased on patient's age to complete this topic Insurance [place] Care Teams Phosphoric Acid Supervisor Relationship Specialty Start Date End Date None, Provider, PCP - General UNKNOWN PHYSICIAN SPECIALTY 07/28/23
--- OUTSIDE RECORDS SUMMARY | 2024-10-07 12:36 | XMS_ITS | Data Portability ---
Author Organization [place] - [facility], Main Office Address [address] [place] [address] Care Team Providers Care Director Orange Name Role Phone AYLEEN RALPH Primary Care Provider AYLEEN RALPH Referring Provider Assessment Encounter Date Assessment Date Assessment LastModified by Organization Details LastModified Time 09/30/2023 09/30/2023 58-year-old female presents for evaluation of her left knee. She had injury on 08/08/2023, when she had a fall and her knee gave out on her. Since then she has had pain, swelling, and instability of the knee. She still has significant pain, currently rated as 7/10. She was initially placed in a knee immobilizer, and change to a hinged knee brace. She has been telling taking Celebrex, hydrocodone, and I could take she did get x-rays and a. He denies any knee injury. 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 Range of motion 5-130. Positive Jong's the locking, stable posterior drawer, she has increased gapping with valgus stress. Neurovascular Previous x-rays were reviewed showing no acute bony abnormality with trace. Previous MRI was reviewed, demonstrating ACL tear, tearing of the medial and lateral menisci. Chondromalacia of the patellofemoral joint. Tear of the proximal MCL She has an ACL tear and MCL tear, with some degenerative change we will see the course of night with physical therapy. We also ordered her a DonJoy playmaker brace. We will have her follow-up in 6 weeks after the course of therapy and conservative management. We discussed that people can function without an ACL in a brace, but she has persisting we can discuss potential surgical treatments. She is in agreement [email or web address] Not available 09/30/2023 21:37:39 11/11/2023 11/11/2023 58-year-old female presents for follow up of her left knee. She has an ACL and MCL tear that we have been treating conservatively in a brace. She has been working with PT and taking celebrex. She felt that she was doing well with these treatments until a fall 2 weeks ago. Since then her pain has gotten much worse and she has experienced swelling. Physical exam: She has tenderness over the medial and lateral joint line. Range of motion 5-120. Positive Jong's, stable posterior drawer, she has increased gapping with valgus stress. Neurovascular intact. Today we discussed the risks and benefits of a cortisone injection. She elected to proceed with the injection today. We recommend that she continue to wear the brace and work on PT exercises. She can also continue to take Celebrex. We discussed that we can see her back as needed for pain but if she has persisting symptoms we can discuss potential surgical treatments. She is in agreement. [email or web address] Not available 11/12/2023 15:32:07 Plan of Treatment Reminders Order Date Submit Date Provider Last Modified By Organization Details Last Modified Time Details Appointments None recorded. Lab None recorded. Referral physical therapist referral - Please schedule pt for L knee. thanks [email or web address] [facility], [address], [place], [address], 23:59:53 Procedures injection/a spiration joint/bursa (PROC) 2023 024 [email or web address] 3 In-Office Order, Internal Use Only DO Not Attach Compendium DO Not Attach Compendium, Do Not Delete/merge, [id number] 16:06:23 Surgeries None recorded. Imaging None recorded. Medication Orders Kenalog 10 mg/mL suspension for injection 2023 024 [email or web address] [facility], [facility], [place], [address], 16:24:42 Marcaine (PF) 0.5 % (5 mg/mL) injection solution 2023 024 [email or web address] [facility], [facility], [place], [address], 16:24:42 Patient TargetsNo targets recorded. Patient InstructionsNo instructions recorded. Reason for Referral Physical Therapist Referral for Pain of left knee joint L knee Please schedule pt for L knee. thanks Referring Physician: Gunnar Abreu, Orthopedic Surgery, Encounter Date: 09/30/2023 Results Created Date Observation Date Name Description Value Unit Range Abnormal Flag Note LastModifiedBy Organization Detail LastModifiedTime 12/09/19 24 XR, knee, 3 view No observ ation record ed. [email or web address] Not Available 2023 15:11:36 12/09/19 24 MRI, knee, w/o contr ast No observ ation record ed. [email or web address] Not Available 2023 15:11:41 Result Notes None recorded. Problems Name Problem SNOMED Code Status Onset Date Resolution Date Notes Provider Name and Address Organization Details Recorded Time Pain of left knee joint [id number] Active 2023 ALYCIA Francis, [employer] 15:25:38 Problem Notes None recorded. Procedures Surgical History Date Name Laterality Status Provider Name and Address Organization Details Recorded Time Ortho - Cortisone Injection completed Lorena Vasquez, DANCE STUDIO MANAGER [address] [facility], [place], [address], [employer] 11/12/2023 15:32:22 Shoulder completed ALYCIA Francis [employer] 09/30/2023 15:24:34 Imaging Results Imaging Date Name Status LastModified by Organiz ation Details LastModified Time 12/09/2023 XR, knee, 3 view completed [email or web address] Information not available 12/09/2023 15:11:36 12/09/2023 MRI, knee, w/o contrast completed Information not available 12/09/2023 15:11:41 Procedure Notes None recorded. Medical Equipment None Reported. Allergies No known drug allergies Medications Name Sig Start Date Stop Date Status Note LastModified by Organization Details LastModified Time carisoprodo l 350 mg tablet TAKE 1 TABLET BY MOUTH THREE TIMES DAILY NEEDED FOR MUSCLE PAIN. TAKE AT BEDTIME NEEDED FOR PAIN AND REST active Not Available Not Available No t Available celecoxib 200 mg capsule TAKE 1 CAPSULE BY MOUTH TWICE DAILY NEEDED FOR PAIN DIRECTED active Not Available Not Available No t Available atorvastati n 20 mg tablet TAKE 1 TABLET BY MOUTH DAILY active Not Available Not Available No t Available hydrocodone 5 mg-acetamin ophen 325 mg tablet TAKE 1 TABLET BY MOUTH EVERY 6 HOURS NEEDED FOR PAIN active Not Available Not Available No t Available sertraline 100 mg tablet TAKE 2 TABLETS BY MOUTH DAILY active Not Available Not Available No t Available Kenalog 10 mg/mL suspension for injection in office 2023 active [facility]: 0003- 0494- 20 Not Available Not Available Not Available neomycin-po lymyxin-dex ameth 3.5 mg/mL-10,00 0 unit/mL-0.1 % eye drops 09/30 completed Not Available Not Available Not Available tobramycin 0.3 % eye drops 09/30 completed Not Available Not Available Not Available albuterol sulfate HFA 90 mcg/actuati on aerosol inhaler INHALE 2 PUFFS BY MOUTH EVERY 6 HOURS NEEDED FOR SHORTNESS OF BREATH OR WHEEZING active Not Available Not Available No t Available doxycycline hyclate 100 mg tablet TAKE 1 TABLET BY MOUTH EVERY DAY WITH FOOD 09/30 completed Not Available Not Available Not Available Marcaine (PF) 0.5 % (5 mg/mL) injection solution in office 2023 active Not Available Not Available Not Gomez [facility] pregabalin 150 mg capsule TAKE ONE CAPSULE BY MOUTH EVERY DAY AT BEDTIME WITH 300 MG DOSE active Not Available Not Available No t Available pregabalin 300 mg capsule TAKE 1 CAPSULE BY MOUTH DAILY WITH 150 MG DOSE active Not Available Not Available No t Available Vitals Date Recorded Body height Body mass index (BMI) Body weight Pain severity - 0-10 verbal numeric rating [Score] - Reported Provider Name and Address Organization Details Last Updated DateTime 09/30/2023 154.94 cm 31.9 kg/m2 49693.11 g 7 ALYCIA Francis [place] [facility] 09/30/2023 15:21:07 Date Recorded Body height Body mass index (BMI) Body weight Provider Name and Address Organization Details Last Updated DateTime 11/11/2023 154.94 cm 31.2 kg/m2 44608.74 g ALYCIA Francis [employer] 11/11/2023 15:07:05 Social History Question Answer Notes LastModified by Organizat ion Details LastModified Time Tobacco Smoking Status Current Every Day Smoker Miriam ALYCIA Rowell null, Active Media Pinnatta [facility] 09/30/2023 15:22:29 What Is Your Level Of Alcohol Consumption? None [email or web address] Information not available 09/30/2023 What Was The Date Of Your Most Recent Tobacco Screening? 09/30/2023 [email or web address] Information not available 09/30/2023 Sex: Unknown Functional Status None recorded. Mental Status None recorded. Family History Relationship Description Onset Age of this Age Resolved Age Notes LastModified by Organization Details LastModified Time Father Heart disease [email or web address] Not available 2023 15:21:56 Father Diabetes mellitus Not available 2023 15:22:13 Mother Family history of malignant neoplasm [email or web address] Not available 2023 15:22:04 Medical History Condition Response ARTHRITIS Y Gynecological HistoryNo gynecological history recorded. Obstetrics History GPAL:G 0 P 0 0 0 0 Past Encounters Encounter ID Performer Location Encounter Start Date Encounter Closed Date Diagnosis/Indication Diagnosis SNOMED-CT Code Diagnosis ICD10 Code Diagnosis Note [id number] Gunnar Abreu MD [facility] [place] [address] [place] [address] 09/30/2023 14:52:13 09/30/2023 16:26:54 Pain of left knee joint [id number] 82149 M25.397 [id number] Lorena Vasquez NP [facility] [place] [address] [place] [address] 11/11/2023 15:04:38 11/11/2023 16:03:15 Pain of left knee joint [id number] 69881 M25.562 Health Concerns Section Related Observation LastModified by Organization Detai ls LastModified Time None Recorded Concern Status LastModified by Organization Details LastModified Time None Recorded Advance Directives Directive None Recorded Payers Encounter Date Sequence Insurance Name Policy Number Policy Cohen Covered Member ID Cohen Member ID Guarantor Name 09/30/2023 1 [place] [id number] Dione Love [id number] Dione Love 11/11/2023 1 [place] [id number] Dione Love [id number] Dione Love OBGyn Episode No OBEpisode recorded.
--- OUTSIDE RECORDS SUMMARY | 2024-10-07 12:36 | XMS_ITS | Encounter Summary ---
Author Organization [facility] Address [facility] [place] [address] Care Team Providers Care Ship'S Master Name Role Phone Shirley Nogueira MD Primary Care Provider Unavailable Cande Holt MD Primary Care Provider None, Provider Primary Care Provider Unavaila ble Encounter Details Date Type Department Care Team (Late st Contact Info) Description 10/23/2015 Abstract [facility] CONVERSION [address] [place] [address] Shirley Nogueira MD Social History Tobacco Use Types Packs/Day Years Used Date Smoking Tobacco: Never Assessed Comments Unknown Sex and Gender Information Value Date Recorded Sex Assigned at Not on file Legal Sex Female 7:14 PM CDT Gender Identity Not on file Sexual Orientation Not on file documented as of this encounter Plan of Treatment Not on file documented as of this encounter Visit Diagnoses Not on filedocumented in this encounter Care Teams Ship'S Master Relationship Specialty Start Date End Date Shirley Nogueira MD PCP - General 08/13/11 11/11/17 Cande Holt MD PCP - General INTERNAL MEDICINE 09/24/18 07/27/23 None, ProviderMD PCP - General UNKNOWN PHYSICIAN SPECIALTY 07/28/23 documented as of this encounter
--- OUTSIDE RECORDS SUMMARY | 2024-10-07 12:36 | XMS_ITS | Encounter Summary ---
Author Organization [facility] Address [address] [place] [address] Care Team Providers Care Durability Engineer Name Role Phone Kelvin Finch MD Primary Care Provider [phone] Reason for Referral * Consultation (Routine) - Closed Specialty Diagnoses / Procedures Referred By Contginna t Referred To Contact Endocrinology Diagnoses Other specified abnormal findings of blood chemistry Mayda Thorpe APRN-CNP [address] [place] [address] [facility] Endo [facility] [address] [place] [address] Referral ID Status Reason Start Date Expiration Date V isits Requested Visits Authorized [id number] Closed Specialty Services Required 08/01/2024 08/01/2025 1 1 MOBILE DRIVER Encounter Details Date Type Department Care Team (Late st Contact Info) Description 08/01/2024 Transcribe Orders [facility] - Centralized Scheduling [facility] [place] [address] Mayda Thorpe APRN-CNP [address] [place] [address] Other specified abnormal findings of blood chemistry Social History Tobacco Use Types Packs/Day Years Used Date Smoking Tobacco: Every Day Smokeless Tobacco: Never Sex and Gender Information Value Date Recorded Sex Assigned at Not on file Gender Identity Not on file Sexual Orientation Not on file documented as of this encounter Plan of Treatment Scheduled Referrals Name Type Priority Associated Diagnoses Order Schedule AMB REFERRAL TO ENDOCRINOLOGY Outpatient Referral Routine Other specified abnormal findings of blood chemistry 1 Occurrences starting 08/01/2024 until 08/01/2025 documented as of this encounter Visit Diagnoses Diagnosis Other specified abnormal findings of blood chemistry- Primary documented in this encounter Care Teams Durability Engineer Relationship Specialty Start Date End Date Kelvin Finch MD [address] [place] [address] PCP - General 11/01/21 documented as of this encounter
--- OUTSIDE RECORDS SUMMARY | 2024-10-07 12:36 | XMS_ITS | Patient Health Summary ---
Author Organization [facility] [employer] Address [address] [place] [address] Care Team Providers Care Checker Cashier Name Role Phone Kelivn Finch MD Primary Care Provider [phone] Note from [facility],non-owned Affiliates and Associated Physician Practices is amultiple site organization consisting of ambulatory clinics and hospital sitesin [place], [place], [place] and [place]. This disclosure is being madepursuant to the Care Everywhere program and may not contain all information available regarding this patient. Last updated 18.[facility] [employer] Allergies No known active allergies Medications * Be aware that medications may not be up to date on this document. Alwaysverify current medications with the patient. * tiZANidine (ZANAFLEX) 4 MG tablet(Started 10/13/2018) * atorvastatin (LIPITOR) 20 MG tablet(Started 10/05/2018) * temazepam (RESTORIL) 30 MG capsule(Started 10/05/2018) * betamethasone valerate (VALISONE) 0.1 % cream(Started 09/24/2018) * sertraline (ZOLOFT) 100 MG tablet(Started 09/20/2018) * betamethasone dipropionate augmented (DIPROLENE AF) 0.05 % cream(Started 10/21/2018) Apply to affected area on hands twice daily. 30 days supply. 11 refills remaining * carisoprodol (Soma) 350 MG tablet TAKE 1 TABLET BY MOUTH THREE TIMES DAILY NEEDED FOR MUSCLE PAIN. TAKE AT BEDTIME NEEDED FOR PAIN AND REST * HYDROcodone-acetaminophen (Shelby) 5-325 MG tablet Take 1 (one) tablet by mouth every 6 hours as needed * pregabalin (Lyrica) 150 MG capsule TAKE ONE CAPSULE BY MOUTH EVERY DAY AT BEDTIME WITH 300 MG DOSE * triamcinolone acetonide (Kenalog-10) injection(Started 11/11/2023) in office * BUPivacaine PF (Marcaine PF) 0.5 % injection(Started 11/11/2023) in office * pravastatin (Pravachol) 40 MG tablet Take 1 (one) tablet by mouth at bedtime * celecoxib (CeleBREX) 200 MG capsule TAKE 1 CAPSULE BY MOUTH TWICE DAILY NEEDED FOR PAIN DIRECTED * multivitamin daily tablet Take 1 (one) tablet by mouth daily with food * ascorbic acid (Vitamin C) 250 MG tablet Take 1 (one) tablet by mouth once daily Active Problems Problem Noted Date Diagnosed Date [...] Comments Blood Pressure 128/78 08/03/2024 1:12 PM CASE LINER Pulse 63 08/03/2024 1:12 PM CASE LINER Temperature - - Respiratory Rate - - Oxygen Saturation 94% 08/03/2024 1:12 PM CASE LINER Inhaled Oxygen Concentration - - Weight 75.8 kg (167 lb) 08/03/2024 1:12 PM CASE LINER Height 157.5 cm (5' 2 ) 08/03/2024 1:12 PM CASE LINER Body Mass Index 30.54 08/03/2024 1:12 PM CASE LINER Procedures * DERMATOPATHOLOGY(Performed 01/26/2014) Results * PATHOLOGY TISSUE FOR DERMATOLOGY (01/26/2014 12:00 AM CDT) Result CASE: [id number] PATIENT: RADHA HERNANDEZ PATHOLOGIC DIAGNOSIS: Left post base neck: 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 Check margins. GROSS DESCRIPTION: Received is one formalin filled container labeled with the patient's name and designated left post base neck. The specimen consists of a shave biopsy measuring 7x6x3 mm, the margin is inked green. Jar 0. MICROSCOPIC DESCRIPTION: There are nests of melanocytes within the dermis that mature with depth. Lesion is present at the margin of the specimen. Electronically signed out by Awa Duncan M.D. 01/30/2014 11:40:02AM [facility] Comment: Performed at: Dermatopathology Laboratory [facility] Department of Dermatology [address] [place] [address], 5th [place] [address] Phone number: [phone] FAX: [phone] 01/26/2014 01/27/2014 Juaquin Trammell MD LAB - PATHOLOGY/CYTO LOGY ORDERABLES [facility] [address] [place] [address]. 5th [place] [address], [facility] [phone] Care Teams Checker Cashier Relationship Specialty Start Date End Date Kelvin Finch MD [address] [place] [address] PCP - General 11/01/21
--- OUTSIDE RECORDS SUMMARY | 2024-10-07 12:36 | XMS_ITS | Clinical Summary ---
Author Organization [facility] [employer] Address [address] [facility] [place] [address] Care Team Providers Care District Sales Coordinator Name Role Phone Kelvin Finch MD Primary Care Provider [phone] Source Comments [facility],non-owned Affiliates and Associated Physician Practices is amultiple site organization consisting of ambulatory clinics and hospital sitesin [place], [place], [place] and [place]. This disclosure is being madepursuant to the Care Everywhere program and may not contain all information available regarding this patient. Last updated 18.[employer] Allergies No known active allergies Medications * [...] FOR PAIN AND REST Active HYDROcodone-acetamino phen ([place]) 5-325 MG tablet Take 1 (one) tablet [...] abnormal findings of blood chemi stry 08/04/2024 Encounters Date Type Department Care Team Description 08/03/2024 1:00 PM SMALL ENGINE MECHANIC Office Visit [facility] - Endocrinology [address] [place] [id number] Gina Cyr MD Other specified abnormal findings of blood chemistry (Primary Dx) 08/02/2024 Travel 08/01/2024 Transcribe Orders [facility] - Centralized Scheduling [address] [place] [id number] Mayda Thorpe, SPECTROSCOPIST-PULP PRESS TENDER Other specified abnormal findings of blood chemistry from Last 3 Months Family History Medical History Relation Name Comments Asthma Neg Hx CVA Neg Hx Cancer - Breast Neg Hx Cancer - Other Neg Hx Cancer - Skin, Melanoma Neg Hx Cancer - Skin, Non Melanoma Neg Hx Eczema Neg Hx Hemophilia Neg Hx Psoriasis Neg Hx Social History Tobacco Use Types Packs/Day Years [...] Comments Blood Pressure 128/78 08/03/2024 1:12 PM SMALL ENGINE MECHANIC Pulse 63 08/03/2024 1:12 PM SMALL ENGINE MECHANIC Temperature - - Respiratory Rate - - Oxygen Saturation 94% 08/03/2024 1:12 PM SMALL ENGINE MECHANIC Inhaled Oxygen Concentration - - Weight 75.8 kg (167 lb) 08/03/2024 1:12 PM SMALL ENGINE MECHANIC Height 157.5 cm (5' 2 ) 08/03/2024 1:12 PM SMALL ENGINE MECHANIC Body Mass Index 30.54 08/03/2024 1:12 PM SMALL ENGINE MECHANIC Plan of Treatment Health Maintenance Due Date Last Done Comments COLOGUARD (AGES 45-75) - COL ON CA SCREENING 1966 COLON MONITORING 1966 COLONOSCOPY - COLON CA SCREENING 1966 CT COLONOGRAPHY - COLON CA SCREENING 1966 Colorectal Cancer Screening 1966 FIT - COLON CA SCREENING 1966 FLEX SIG - COLON CA SCREENING 1966 MAMMOGRAM 1966 PAP SMEAR 1966 HIV SCREENING 1981 HEPATITIS C SCREENING 08/05/1984 DTAP/TDAP/TD VACCINES (1 - Tdap) 1985 HEPATITIS B VACCINE (1 of 3 - 19+ 3-dose series) 1985 PNEUMOCOCCAL VACCINE 50+ (1 of 2 - PCV) 1985 PNEUMOCOCCAL VACCINE (1 of 2 - PCV) 1985 ZOSTER VACCINE (1 of 2) 2016 COVID-19 VACCINE (1 - 2023-2 5 season) 2024 INFLUENZA VACCINE (#1) 2024 8, 06/27/2014 SCREENING FOR DIABETES 08/03/2024 DEPRESSION SCREENING 08/31/2024 HIB VACCINE Aged Out No longer eligi ble based on patient's age to complete this topic HPV VACCINE Aged Out No longer eligi ble based on patient's age to complete this topic MENINGOCOCCAL (Group B) VACCINE Aged Out No longer eligible b ased on patient's age to complete this topic MENINGOCOCCAL VACCINE Aged Out No noman francisco eligible based on patient's age to complete this topic Care Teams District Sales Coordinator Relationship Specialty Start Date End Date Kelvin Finch MD [address] [place] [address] PCP - General 11/01/21
[2024-10-07 13:30] LABS: Free T4 Free Thyroxine 0.88 ng/dL (0.78-2.19)
[2024-10-07 13:41] LABS: Thyroid Stimulating Hormone 0.808 uIU/mL (0.465-4.680)
[2024-10-11 08:43] LABS: Thyroid Peroxidase Antibodies 1 IU/mL (<9)
== END 2024-10-07 12:33 | disposition home or self-care (01) ==
PROVIDERS: PCP Family Medicine
DX: R79.89 Other specified abnormal findings of blood chemistry (principal)
CPT/HCPCS: 36415; 84439; 84443; 84445